=== PATIENT | female | born 1985 | race Caucasian/White ===

== ENCOUNTER 2023-01-02 23:04 | Emergency (ER) | payer SELFPAY ==
[~2023-01-02] VITALS: Ht 162.6 cm; Wt 72.6 kg
[2023-01-02] MEDS ORDERED: TYLENOL PO STA (23:11)
[2023-01-02] MEDS ORDERED: TYLENOL PO ONE (23:20)
[2023-01-02 23:45] LABS: INFLUENZA VIRUS A ANTIGEN NEGATIVE (NEG); INFLUENZA VIRUS B ANTIGEN NEGATIVE (NEG)
[2023-01-02 23:54] VITALS: BP 123/81; PULSE 82; RESP 16; TEMP 98.2; O2SAT 97
[2023-01-03 00:19] VITALS: BP 123/85; PULSE 78; RESP 16; TEMP 98.2; O2SAT 96
== END 2023-01-03 00:25 | disposition home or self-care (01) ==
LOC: ER 23:04
DX: O98.512 Other viral diseases complicating pregnancy, second trimester (principal); O99.512 Diseases of the respiratory system complicating pregnancy, second trimester; O26.892 Other specified pregnancy related conditions, second trimester; B34.9 Viral infection, unspecified; M79.7 Fibromyalgia; Z90.49 Acquired absence of other specified parts of digestive tract; Z20.822 Contact with and (suspected) exposure to COVID-19; Z3A.22 22 weeks gestation of pregnancy
CPT/HCPCS: 99283; 87426; 87070; 87880; 87804 ×2; A9150